=== PATIENT | female | born 1935 | race Caucasian/White ===

== ENCOUNTER 2017-01-27 14:31 | Observation (INO) ==
[2017-01-27] MEDS ORDERED: Phenylephrine Nasal 0.5% 15 ML BOTTLE NS ONE (14:34)
[2017-01-27] MEDS ORDERED: Silver Nitrate Applicator 1 STICK..EA. TP ONE (14:38)
[2017-01-27] MEDS: Silver Nitrate Applicator 1 STICK..EA. TP ONE (14:42)
--- NOTE | 2017-01-27 14:43 | Emergency Department Note ---
Disposition Clinical Impression: Epistaxis Disposition: Admitted As Inpatient Condition: Good Time of Disposition: 15:53 (b[facility]) Epistaxis HPI - General Chief complaint: ED Epistaxis Stated complaint: nose bleed Time Seen by Provider: 01/27/17 14:33 Source: patient Mode of arrival: ambulatory Limitations: no limitations Nursing Notes Reviewed: Yes Vital Signs Reviewed: Yes - History of Present Illness HPI Narrative: 81-year-old female seen a couple weeks ago for a nosebleed at that time was treated with silver nitrate patient presents back today after restarting bleeding approximately 3 days prior to arrival she is currently on multiple blood thinners at least from her medication list due to her condition she is unable to provide me with adequate history patient's bleeding from the left nares denies any lightheadedness dizziness denies any blurred vision or double vision she denies any diarrhea melena hematochezia or hematemesis patient's been bleeding for at least an hour prior to arrival bleeding the last 2 days as per home health caregiver Pt Subjective Complaint: epistaxis Location: left nostril Onset (ago): hour(s) (1) Duration: constant, hours (#) (1) Context: aspirin use, warfarin use, other anticoagulant use Associated symptoms: Reports: weakness Treatment prior to arrival: nose pinching, head tilted back, head leaned forward , stuffed nose with tissue - Related Data Home Medications Medication Instructions Recorded Confirmed Allopurinol [Zyloprim] 300 mg PO QAM 09/15/16 01/27/17 Aspirin 81 mg PO DAILY 09/15/16 01/27/17 Atorvastatin [Lipitor] 40 mg PO HS 09/15/16 01/27/17 Calcium Carbonate/Vitamin D3 1 each PO QAM 09/15/16 01/27/17 [Calcium 500 + Vit D Caplet] Digoxin [Lanoxin] 0.125 mg PO DAILY 09/15/16 01/27/17 Donepezil [Aricept] 5 mg PO HS 09/15/16 01/27/17 Folic Acid/Multivit-Min/Lutein 1 each PO QAM 09/15/16 01/27/17 [Centrum Silver Chewable Tablet] GlipiZIDE [Glipizide ER] 10 mg PO BID 09/15/16 01/27/17 Metformin HCl [Glucophage] 1,000 mg PO BID 09/15/16 01/27/17 Raloxifene [Evista] 60 mg PO DAILY 09/15/16 01/27/17 Rivaroxaban [Xarelto] 20 mg PO HS 09/15/16 01/27/17 Ferrous Sulfate [Iron] 325 mg PO DAILY 01/15/17 01/27/17 Metoprolol XL (24 HR) Succ [Toprol 50 mg PO DAILY 01/15/17 01/27/17 Xl] Acetaminophen [Tylenol] 1,000 mg PO QAM AND QHS 01/27/17 01/27/17 Amlodipine Besylate/Benazepril 1 each PO DAILY 01/27/17 01/27/17 [Lotrel 10-40 mg Capsule] Oxycodone HCl/Aspirin 1 each PO Q6H PRN 01/27/17 01/27/17 [Oxycodone-Aspirin 4.8355-325] Warfarin [Coumadin] 2.5 mg PO 1800 01/27/17 01/27/17 Allergies Allergy/AdvReac Type Severity Reaction Status Date / Time No Known Allergies Allergy Verified 01/15/17 10:21 All systems ED: reviewed and negative except as stated. Review of Systems: As Per HPI Constitutional: Denies: fever, chills, weakness Eyes: Denies: eye pain, eye discharge ENT ED: Reports: epistaxis Cardiovascular: Denies: chest pain, palpitations Respiratory: Denies: cough, dyspnea Gastrointestinal: Denies: abdominal pain, nausea, vomiting Genitourinary: Denies: urgency, dysuria, frequency Musculoskeletal: Denies: back pain, neck pain Integumentary: Denies: rash, abrasion Neurological: Reports: vertigo. Denies: headache, weakness Psychiatric: Denies: anxiety, depression Endocrine: Denies: fatigue Hematological/Lymphatic: Denies: easy bleeding Allergic/Immunologic: Denies: facial swelling Past Medical History - Past Medical History Attestation: Yes The following information was validated with the patient. Source: patient, old records reviewed, nursing notes reviewed Medical history: Reports: arthritis, atrial fibrillation, diabetes, hyperlipidemia, hypertension, other Surgical history: Reports: non-contributory, other Psychiatric history: Reports: anxiety, depression - Social History Smoking Status: Never smoker Smokeless Tobacco Status: No Alcohol use: Reports: none Drug use: Reports: none Physical Exam - General Limitations: no limitations General appearance: alert, in no apparent distress - Head Head exam: atraumatic, normocephalic, normal inspection - Eye Eye exam: Present: normal appearance, PERRL, EOMI - ENT ENT exam: normal oropharynx, mucous membranes moist, TM's normal bilaterally, normal external ear exam, other (No blood in the right nares blood noted left nares along with septal bleeding along the inferior edge of the septum heavy use is noted no clotting noted within the nasal region at this time blood noted within the posterior pharyngeal region) - Neck Neck exam: Present: normal inspection, full ROM, trachea midline - Chest Chest inspection: Present: normal inspection, symmetric chest wall rise - Respiratory Respiratory exam: Present: normal lung sounds bilaterally - Cardiovascular Cardiovascular exam: Present: regular rate, normal rhythm, normal heart sounds - Abdominal Exam Abdominal exam: Present: soft, Non-Tender, normal bowel sounds. Absent: mass, pulsatile mass - Extremities Exam Extremities exam: Present: normal inspection, full ROM, normal capillary refill , other (Slow steady gait). Absent: tenderness, pedal edema, joint swelling - Expanded Lower Extremity Exam Neurovascular/Tendon exam: Present: normal capillary refill, normal fine/light touch Gait: antalgic - Back Exam Back exam: Present: normal inspection, full ROM. Absent: muscle spasm - Neurological Exam Neurological exam: Present: alert, oriented X3, CN II-XII intact - Psychiatric Psychiatric exam: Present: normal affect, normal mood - Skin Skin exam: Present: warm, dry, intact, normal color Course Course Narrative: Only female seen examined area was cleansed with a Sigifredo-Synephrine spray revealing area along the nasal septal region which was bleeding area was cauterized using silver nitrate but despite this continued to bleed through the Silver nitrate coating as result 5.5 cm nasal tampon was placed with the balloon inflated with mild discomfort noted to the patient no further bleeding noted posterior pharyngeal region shows no bleeding noted as a result patient was admitted for observation due to her age but also the fact is nobody would be up to be with her this evening and make sure that she would not pull the packing out patient has some mild dementia as result admitted for observation Dr. Petersen understands Vital Signs Temperature 99.4 F 01/27/17 14:33 Pulse Rate 77 01/27/17 14:33 Respiratory Rate 18 01/27/17 14:33 Blood Pressure 155/77 08/23/17 14:33 O2 Sat by Pulse Oximetry 98 01/27/17 14:33 Temperature 98.0 F 01/27/17 17:41 Pulse Rate 99 01/27/17 17:41 Respiratory Rate 17 01/27/17 17:41 Blood Pressure 170/83 01/27/17 17:41 O2 Sat by Pulse Oximetry 96 01/27/17 17:41 Oxygen Delivery Oxygen Delivery Room Air Procedures - Epistaxis Control Consent Obtained: verbal consent Time Out Performed: Yes Nostril: left Nose Prepped With: phenylephrine Direct Inspection: yes, anterior source identified Clots Removed by: blowing nose, manually Cautery Used: silver nitrate Device Inserted: nasal tampon Device Size: 5 (5.5cm nasal rhino rocket) Patient Tolerated Procedure: well, no complications (minimal pain) Complications: pain (minimal) Epistaxis - Differential Diagnosis Likely: anterior epistaxis - Medical Records Medical records reviewed: Yes I reviewed the patient's medical records. - Lab Data Lab results reviewed: Yes I reviewed the patient's lab results. Result diagrams: 01/27/17 15:02 Lab Results 01/27/17 01/27/17 01/27/17 Range/Units 15:02 15:02 17:14 WBC 8.0 (4.3-11.1) K/mcL RBC 3.70 L (3.82-4.97) M/mcL Hgb 10.9 L (11.5-15.4) g/dL Hct 33.0 L (35.3-44.9) % MCV 89.2 (83.0-100.0) fL MCH 29.5 (28.0-33.3) pg MCHC 33.0 (31.6-35.5) g/dL RDW 14.6 H (11.5-14.5) % Plt Count 224 (140-400) K/mcL MPV 11.0 (9.4-12.4) fL PT 17.9 H (9.4-12.1) Seconds INR 1.6 APTT 41.0 H (26.0-36.0) Seconds POC Glucose 83 (58-89) Critical Care Time Critical Care Time: No
[2017-01-27 15:11] LABS: Hemoglobin 10.9 g/dL (11.5-15.4); Mean Corpuscular Hemoglobin 29.5 pg (28.0-33.3); Mean Corpuscular Volume 89.2 fL (83.0-100.0); Platelet Count 224 K/mcL (140-400); Red Cell Distribution Width 14.6 % (11.5-14.5)
[2017-01-27 15:17] LABS: INR 1.6; Prothrombin Time 17.9 Seconds (9.4-12.1)
[2017-01-27] MEDS ORDERED: *HR* Dextrose 50 % in Water (Syg) 50 ML SYRINGE IVP PRN ×2 (17:05→17:18)
[2017-01-27] MEDS ORDERED: Dextrose Gel 15 GM PO PRN ×4 (17:05→17:18)
[2017-01-27] MEDS ORDERED: D5% in Water 1,000 ML IVC PRN ×2 (17:05→17:18)
[2017-01-27] MEDS ORDERED: Naloxone 0.4 MG/ML INJ IVP PRN (17:18)
[2017-01-27] MEDS: *HR* GlipiZIDE XL (24 HR) 10 MG TABLET PO SCH (18:32)
[2017-01-27] MEDS: *HR* Metformin 500 MG TABLET PO SCH (20:13)
[2017-01-28] MEDS: *HR* OxyCODONE Immed Rel 5 MG TABLET PO PRN ×2 (06:33→21:49)
[2017-01-28 06:34] LABS: Basophils % 0.5 %; Eosinophils # 0.2 K/mcL (0.0-0.6); Hematocrit 30.1 % (35.3-44.9); Hemoglobin 9.8 g/dL (11.5-15.4); Immature Granulocytes % 0.2 % (0-4); Lymphocytes # 1.7 K/mcL (0.6-4.6); Lymphocytes % 20.5 %; Mean Corpuscular HGB Conc 32.6 g/dL (31.6-35.5); Mean Corpuscular Hemoglobin 29.1 pg (28.0-33.3); Mean Corpuscular Volume 89.3 fL (83.0-100.0); Mean Platelet Volume 10.4 fL (9.4-12.4); Monocytes # 0.5 K/mcL (0.0-1.3); Monocytes % 5.8 %; Platelet Count 168 K/mcL (140-400); Red Blood Count 3.37 M/mcL (3.82-4.97); Red Cell Distribution Width 14.6 % (11.5-14.5)
[2017-01-28 06:40] LABS: INR 1.1; Prothrombin Time 11.8 Seconds (9.4-12.1)
[2017-01-28 06:42] LABS: Activated Partial Thrombo Time 32.8 Seconds (26.0-36.0)
[2017-01-28 07:07] LABS: BUN/Creatinine Ratio 22 (6-26); Blood Urea Nitrogen 20 mg/dL (7-20); Calcium 8.6 mg/dL (8.6-10.8); Carbon Dioxide 24 mEq/L (19-29); Chloride 108 mEq/L (98-109); Glucose 163 mg/dL (70-99); Osmolality,Calculated 302 (280-300); Potassium 4.2 mEq/L (3.5-4.5); Sodium 143 mEq/L (136-145); eGFR For African Americans > 60 (> 60); eGFR For Non-African Americans 58 (> 60)
[2017-01-28] MEDS ORDERED: Insulin LISPRO 300 UNITS/3 ML VIAL SQ SCH (07:30)
[2017-01-28] MEDS: Lisinopril 20 MG TABLET PO SCH (08:08)
[2017-01-28] MEDS: amLODIPine 5 MG TABLET PO SCH (08:08)
[2017-01-28] MEDS: Multivit/Ca/Min/Fe/FA 1 TAB TABLET PO SCH (08:08)
[2017-01-28] MEDS: *HR* Digoxin 0.125 MG TABLET PO SCH (08:08)
[2017-01-28] MEDS: Metoprolol XL (24 HR) Succ 50 MG TAB.ER.24H PO SCH (08:08)
[2017-01-28] MEDS: *HR* Metformin 500 MG TABLET PO SCH ×2 (08:09→21:33)
[2017-01-28] MEDS: CALCIUM CARBONATE PO SCH (08:10)
[2017-01-28] MEDS: VITAMIN D3 PO SCH (08:10)
[2017-01-28] MEDS: Insulin LISPRO 300 UNITS/3 ML VIAL SQ SCH ×3 (08:10→16:54)
[2017-01-28] MEDS: *HR* GlipiZIDE XL (24 HR) 10 MG TABLET PO SCH (08:17)
[2017-01-28] MEDS ORDERED: NON-FORMULARY MEDICATION 1 EACH EACH (Amlodipine Besylate/Benazepril [Lotrel 10-40 Mg Caps PO SCH (09:00)
[2017-01-28] MEDS ORDERED: Aspirin 81 MG TAB.CHEW PO SCH (09:00)
[2017-01-28] MEDS ORDERED: AMLODIPINE BES PO SCH (09:00)
[2017-01-28] MEDS ORDERED: [UNRECOGNIZED DRUG - OTHER] PO SCH (09:00)
[2017-01-28] MEDS ORDERED: OLMESARTAN MED PO SCH (09:00)
--- NOTE | 2017-01-28 10:17 | Internal Med History&Physical ---
Date of Encounter: 01/28/17 Time of Encounter: 09:40 Assessment and Plan (1) Epistaxis Current visit: Yes Status: Acute Will hold OAC and aspirin. Remove nasal packing January 30. (2) Atrial fibrillation Current visit: Yes Status: Chronic Will hold OAC because of epistaxis. Qualifiers: Atrial fibrillation type: chronic Qualified Code(s): I48.2 - Chronic atrial fibrillation (3) Anemia Current visit: Yes Status: Chronic Will order anemia testing in a.m. Qualifiers: Anemia type: unspecified type Qualified Code(s): D64.9 - Anemia, unspecified (4) Dementia Current visit: Yes Status: Acute Will order MMSE. Qualifiers: Dementia type: unspecified type Dementia behavioral disturbance: without behavioral disturbance Qualified Code(s): F03.90 - Unspecified dementia without behavioral disturbance (5) Hypertension Current visit: Yes Status: Chronic Continue Norvasc, Zestril, and Toprol Qualifiers: Hypertension type: essential hypertension Qualified Code(s): I10 - Essential (primary) hypertension (6) DM type 2 (diabetes mellitus, type 2) Current visit: Yes Status: Chronic Continue Glucophage. Recheck hemoglobin A1c in a.m. Continue Accu-Cheks with SSI. Qualifiers: Diabetes mellitus complication status: with kidney complications Diabetes mellitus complication detail: with chronic kidney disease Diabetes mellitus senior living insulin use: without senior living use Chronic kidney disease stage: stage 3 (moderate) Qualified Code(s): E11.22 - Type 2 diabetes mellitus with diabetic chronic kidney disease; N18.3 - Chronic kidney disease, stage 3 ( moderate) (7) CKD (chronic kidney disease) stage 3, GFR 30-59 ml/min Current visit: Yes Status: Acute Stable. Will monitor renal indices periodically. Internal Medicine - H&P: HPI Chief complaint: Nosebleed Admitted From: Home Plans for Post Hospital Care: Home History of present illness: Ms. Lui is a 81 year old female who came to the emergency room with complaints of recurrent nosebleed. She had been to ER approximately 2 weeks earlier and treated with silver nitrate but had recurrent bleeding. She does not know the names of her medications but a med list provided by home health agency shows usage of aspirin, oxycodone/aspirin, and Xarelto. She had nasal packing in the emergency room was admitted to [facility] for ongoing care needs. She is a poor historian overall. She admits her memory is impaired. She uses Aricept for presumed dementia. She does not know why she is on aspirin or Xarelto. Past Med Surg Social Fam HX - Past Medical History Medical history: arthritis, atrial fibrillation, diabetes, hyperlipidemia, hypertension, other Psychiatric history: anxiety, depression - Past Surgical History Surgical History: non-contributory, other - Social History Smoking Status: Never smoker Smokeless Tobacco Status: No Alcohol use: none Drug use: none - Family History Daughter History Unknown: Yes Internal Medicine - H&P: Meds Allopurinol [Zyloprim] 300 mg PO QAM 09/15/16 [History] Aspirin 81 mg PO DAILY 09/15/16 [History] Atorvastatin [Lipitor] 40 mg PO HS 09/15/16 [History] Calcium Carbonate/Vitamin D3 [Calcium 500 + Vit D Caplet] 1 each PO QAM [History] Digoxin [Lanoxin] 0.125 mg PO DAILY 09/15/16 [History] Donepezil [Aricept] 5 mg PO HS 09/15/16 [History] Folic Acid/Multivit-Min/Lutein [Centrum Silver Chewable Tablet] 1 each PO QAM [History] GlipiZIDE [Glipizide ER] 10 mg PO BID 09/15/16 [History] Metformin HCl [Glucophage] 1,000 mg PO BID 09/15/16 [History] Raloxifene [Evista] 60 mg PO DAILY 09/15/16 [History] Rivaroxaban [Xarelto] 20 mg PO HS 09/15/16 [History] Ferrous Sulfate [Iron] 325 mg PO DAILY 01/15/17 [History] Metoprolol XL (24 HR) Succ [Toprol Xl] 50 mg PO DAILY 01/15/17 [History] Acetaminophen [Tylenol] 1,000 mg PO QAM AND QHS 01/27/17 [History] Amlodipine Besylate/Benazepril [Lotrel 10-40 mg Capsule] 1 each PO DAILY [History] Oxycodone HCl/Aspirin [Oxycodone-Aspirin 4.8355-325] 1 each PO Q6H PRN 01/27/17 [History] Warfarin [Coumadin] 2.5 mg PO 1800 01/27/17 [History] 3 Allergy/AdvReac Type Severity Reaction Status Date / Time No Known Allergies Allergy Verified 01/15/17 10:21 All Systems PM: A 10-system review of systems was performed and is negative for pertinent findings except as documented above in the HPI. Review of systems: Gen.: She states her weight has decreased in the past year but she is unable to quantitate Cardiovascular: She has history of hypertension. She is uncertain if she has atrial fibrillation. She denies GA heart failure DVT or pulmonary embolus Respiratory: She is a lifelong nonsmoker and denies known chronic lung disease GI: She denies disorders of her liver gallbladder or exocrine pancreas : She denies hematuria dysuria or kidney stones Neurologic: She has a diagnosis of dementia. She denies large distribution strokes or seizures Endocrine: She has DM 2 but is uncertain of duration. Hemoglobin A1c was 7.1% on 09/11/2016. She has history of hyperlipidemia. She denies thyroid disease. TSH was normal at 2.870 on 09/11/2016. Hematologic/oncology: She has diagnoses of anemia. Anemia testing September 2016 showed no factor deficiency. 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 She denies other bone joint or muscle disorders. - Constitutional Vitals: Temp Pulse Resp BP Pulse Ox 98.1 F 89 16 158/57 98 01/28/17 06:30 01/28/17 06:58 01/28/17 06:30 01/28/17 06:58 01/28/17 06:30 Exam: Gen.: She is well-developed well-nourished female who appears in no severe distress at present time. She is pleasant and talkative HEENT: Head is atraumatic and normocephalic. Eyes: EOMI. There is no scleral icterus. Mouth: Mucosa is moist. Nose: She has nasal packing in the left nare. Mouth: Mucosa is moist Neck: Supple and nontender. There is no thyromegaly or adenopathy noted. Heart: Irregularly irregular without murmurs or gallops Lungs: No wheezes or crackles are heard. Abdomen: Soft and nontender. No masses or guarding are noted. Extremities: There is no cyanosis edema or clubbing noted. Dorsalis pedis and posterior tibial pulses are trace palpable bilaterally. She has DJD changes of her hands and feet. Neurologic: Mental status: She is talkative but a fair to poor historian. She does not remember many details of her past history. Cranial nerves: Smile is symmetric. Forehead wrinkles bilaterally. Tongue protrudes midline. EOMI. Motor: There is no pronator drift. Cerebellar: Finger to nose is intact bilaterally. Skin: Warm and dry Internal Med - H&P Results - Labs CBC & Chem 7: 01/28/17 06:27 01/28/17 06:27 Labs: Short CBC 01/28/17 Range/Units 06:27 WBC 8.5 (4.3-11.1) K/mcL Hgb 9.8 L (11.5-15.4) g/dL Hct 30.1 L (35.3-44.9) % Plt Count 168 (140-400) K/mcL Neutrophils # 6.0 (1.6-8.9) K/mcL BMP 01/28/17 06:27 Sodium 143 Potassium 4.2 Chloride 108 Carbon Dioxide 24 BUN 20 Creatinine 0.93 Glucose 163 H Calcium 8.6
[2017-01-29 06:24] VITALS: BP 170/73
[2017-01-29 06:28] LABS: Basophils % 0.3 %; Eosinophils # 0.1 K/mcL (0.0-0.6); Eosinophils % 0.8 %; Hematocrit 29.5 % (35.3-44.9); Hemoglobin 9.7 g/dL (11.5-15.4); Immature Granulocytes % 0.3 % (0-4); Lymphocytes # 1.7 K/mcL (0.6-4.6); Lymphocytes % 17.4 %; Mean Corpuscular HGB Conc 32.9 g/dL (31.6-35.5); Mean Corpuscular Hemoglobin 29.2 pg (28.0-33.3); Mean Corpuscular Volume 88.9 fL (83.0-100.0); Mean Platelet Volume 10.6 fL (9.4-12.4); Monocytes # 0.6 K/mcL (0.0-1.3); Monocytes % 5.8 %; Neutrophils # 7.1 K/mcL (1.6-8.9); Platelet Count 162 K/mcL (140-400); Red Blood Count 3.32 M/mcL (3.82-4.97); Red Cell Distribution Width 14.5 % (11.5-14.5); Segmented Neutrophils % 75.4 %
[2017-01-29] MEDS: *HR* GlipiZIDE XL (24 HR) 10 MG TABLET PO SCH ×2 (07:37→07:40)
[2017-01-29] MEDS: Insulin LISPRO 300 UNITS/3 ML VIAL SQ SCH (07:40)
[2017-01-29] MEDS: Lisinopril 20 MG TABLET PO SCH (07:57)
[2017-01-29] MEDS: amLODIPine 5 MG TABLET PO SCH (07:57)
[2017-01-29] MEDS: Metoprolol XL (24 HR) Succ 50 MG TAB.ER.24H PO SCH (07:57)
[2017-01-29] MEDS: *HR* Digoxin 0.125 MG TABLET PO SCH (07:57)
[2017-01-29] MEDS: Multivit/Ca/Min/Fe/FA 1 TAB TABLET PO SCH (07:57)
[2017-01-29] MEDS ORDERED: *HR* Metformin 500 MG TABLET PO SCH (08:00)
[2017-01-29] MEDS: VITAMIN D3 PO SCH (08:12)
[2017-01-29] MEDS: CALCIUM CARBONATE PO SCH (08:12)
[2017-01-29 08:43] LABS: Hemoglobin A1C 6.2 %
--- NOTE | 2017-01-29 11:02 | Discharge Summary ---
Date of Encounter: 01/29/17 Time of Encounter: 10:45 - Discharge Diagnosis (1) Epistaxis Priority: Primary Status: Acute (2) Atrial fibrillation Priority: Secondary Status: Chronic Qualifiers: Atrial fibrillation type: chronic Qualified Code(s): I48.2 - Chronic atrial fibrillation (3) Anemia Priority: Secondary Status: Chronic Qualifiers: Anemia type: unspecified type Qualified Code(s): D64.9 - Anemia, unspecified (4) Dementia Priority: Secondary Status: Chronic Qualifiers: Dementia type: unspecified type Dementia behavioral disturbance: without behavioral disturbance Qualified Code(s): F03.90 - Unspecified dementia without behavioral disturbance (5) Hypertension Priority: Secondary Status: Chronic Qualifiers: Hypertension type: essential hypertension Qualified Code(s): I10 - Essential (primary) hypertension (6) DM type 2 (diabetes mellitus, type 2) Priority: Secondary Status: Chronic Qualifiers: Diabetes mellitus complication status: with kidney complications Diabetes mellitus complication detail: with chronic kidney disease Diabetes mellitus certified midwife insulin use: without certified midwife use Chronic kidney disease stage: stage 3 (moderate) Qualified Code(s): E11.22 - Type 2 diabetes mellitus with diabetic chronic kidney disease; N18.3 - Chronic kidney disease, stage 3 ( moderate) (7) CKD (chronic kidney disease) stage 3, GFR 30-59 ml/min Priority: Secondary Status: Chronic - Discharge Medications Prescriptions: Donepezil HCl [Aricept] 10 mg PO DAILY #30 tablet Memantine [Namenda] 5 mg PO HS #7 tablet Home Medications: Allopurinol [Zyloprim] 300 mg PO QAM 09/15/16 [History] Atorvastatin [Lipitor] 40 mg PO HS 09/15/16 [History] Calcium Carbonate/Vitamin D3 [Calcium 500 + Vit D Caplet] 1 each PO QAM [History] Digoxin [Lanoxin] 0.125 mg PO DAILY 09/15/16 [History] Folic Acid/Multivit-Min/Lutein [Centrum Silver Chewable Tablet] 1 each PO QAM [History] GlipiZIDE [Glipizide ER] 10 mg PO BID 09/15/16 [History] Metformin HCl [Glucophage] 1,000 mg PO BID 09/15/16 [History] Raloxifene [Evista] 60 mg PO DAILY 09/15/16 [History] Ferrous Sulfate [Iron] 325 mg PO DAILY 01/15/17 [History] Metoprolol XL (24 HR) Succ [Toprol Xl] 50 mg PO DAILY 01/15/17 [History] Acetaminophen [Tylenol] 1,000 mg PO QAM AND QHS 01/27/17 [History] Amlodipine Besylate/Benazepril [Lotrel 10-40 mg Capsule] 1 each PO DAILY [History] Aspirin 81 mg PO Q48H #0 01/29/17 [Rx] Donepezil HCl [Aricept] 10 mg PO DAILY #30 tablet 01/29/17 [Rx] Memantine [Namenda] 5 mg PO HS #7 tablet 01/29/17 [Rx] Rivaroxaban [Xarelto] 20 mg PO HS #0 01/29/17 [Rx] Allergies/Adverse Reactions: 3 Allergy/AdvReac Type Severity Reaction Status Date / Time No Known Allergies Allergy Verified 01/15/17 10:21 Date of admission: 01/27/17 17:25 Primary care physician: Yo Brown MD - Patient Status Disposition: Home Health Service Condition: Good Overall status at discharge: patient is progressing back to baseline - Discharge Instructions Follow Up With: Yo Brown MD [Primary Care Provider] - - Diet and Activity Activity: resume usual activities as tolerated Diet: advance to your usual diet Hospital course: Ms. Lui is a 81 year old female who came to the emergency room with complaints of recurrent nosebleed. She had been to ER approximately 2 weeks earlier and treated with silver nitrate but had recurrent bleeding. She does not know the names of her medications but a med list provided by home health agency shows usage of aspirin, oxycodone/aspirin, and Xarelto. She had nasal packing in the emergency room was admitted to [facility] floor for ongoing care needs. Initial orders were written by the emergency room physician. I saw her on January 28 and performed of the history and physical. Her OAC and aspirin were held. Hemoglobin remained stable at 9.7 on January 29. Social service consult was made and arrangements were offered for her to go to [facility] for respite care stay. I spoke with the patient's son the morning of January 29 and he stated he would be able to be in the patient's home for next 3 days and could monitor her there rather than going to respite care. He and his sister are addressing longer-term care needs. MMSE exam showed score of 12/30. Her Aricept dose will be increased to 10 mg daily and she will be started on Namenda 5 mg daily. She will follow with Dr. Brown within 1 week who can increase the dose of Namenda as recommended. Anemia testing was ordered with results pending at time of this dictation. On January 29 she was stable for discharge home. She will remain off Xarelto and aspirin until February 01. Xarelto will be restarted at usual dose but aspirin will be decreased to every 48 hours. She will discontinue the oxycodone /aspirin combination. Home health nursing services will be resumed and the rapid Rhino nasal packing will be removed tomorrow. - Time Spent with Patient Total time spent providing and/or coordinating discharge services: - Constitutional Vitals: Temp Pulse Resp BP Pulse Ox 98.7 F 79 18 170/73 94 01/29/17 06:21 01/29/17 06:21 01/29/17 06:21 01/29/17 06:21 01/29/17 06:21
[2017-01-29 11:05] LABS: Folate 17.7 ng/mL (7.0-31.4)
--- NOTE | 2017-01-29 11:10 | Physician Discharge Referral ---
Home Health/Hosp Referral Info Transfer to: Home Health Attending Provider: Nicola Provider in Charge Post Discharge: PCP (Yo Brown M.D.) - Diagnosis (1) Epistaxis Priority: Primary Status: Acute (2) Atrial fibrillation Priority: Secondary Status: Chronic (3) Anemia Priority: Secondary Status: Chronic (4) Dementia Priority: Secondary Status: Chronic (5) Hypertension Priority: Secondary Status: Chronic (6) DM type 2 (diabetes mellitus, type 2) Priority: Secondary Status: Chronic (7) CKD (chronic kidney disease) stage 3, GFR 30-59 ml/min Priority: Secondary Status: Chronic - Respiratory Orders Smoking Cessation: Smoking cessation has been advised. For more information, call the [place] Tobacco Quit Line at 8-249-CKPD-NOW. - Diet/Nutrition Diet/Nutrition Orders: Regular - Activity Activity Orders: Ambulate - Services Needed Following services are medically necessary services: Nursing, Home Health Aide, Physical Therapy, Occupational Therapy Other Treatments: Remove rapid Rhino from left nare 01/30/2017. - Transfer Medications Prescriptions: Donepezil HCl [Aricept] 10 mg PO DAILY #30 tablet Memantine [Namenda] 5 mg PO HS #7 tablet Home Medications: Allopurinol [Zyloprim] 300 mg PO QAM 09/15/16 [History] Atorvastatin [Lipitor] 40 mg PO HS 09/15/16 [History] Calcium Carbonate/Vitamin D3 [Calcium 500 + Vit D Caplet] 1 each PO QAM [History] Digoxin [Lanoxin] 0.125 mg PO DAILY 09/15/16 [History] Folic Acid/Multivit-Min/Lutein [Centrum Silver Chewable Tablet] 1 each PO QAM [History] GlipiZIDE [Glipizide ER] 10 mg PO BID 09/15/16 [History] Metformin HCl [Glucophage] 1,000 mg PO BID 09/15/16 [History] Raloxifene [Evista] 60 mg PO DAILY 09/15/16 [History] Ferrous Sulfate [Iron] 325 mg PO DAILY 01/15/17 [History] Metoprolol XL (24 HR) Succ [Toprol Xl] 50 mg PO DAILY 01/15/17 [History] Acetaminophen [Tylenol] 1,000 mg PO QAM AND QHS 01/27/17 [History] Amlodipine Besylate/Benazepril [Lotrel 10-40 mg Capsule] 1 each PO DAILY [History] Aspirin 81 mg PO Q48H #0 01/29/17 [Rx] Donepezil HCl [Aricept] 10 mg PO DAILY #30 tablet 01/29/17 [Rx] Memantine [Namenda] 5 mg PO HS #7 tablet 01/29/17 [Rx] Rivaroxaban [Xarelto] 20 mg PO HS #0 01/29/17 [Rx] Allergies/Adverse Reactions: 3 Allergy/AdvReac Type Severity Reaction Status Date / Time No Known Allergies Allergy Verified 01/15/17 10:21 Certification: Further, I certify that my clinical findings support that this patient is homebound (i.e. absences from home require considerable and taxing effort and are for medical reasons or yarsanism services or infrequently or short duration when for other reasons) because: Homebound Reason: Leaving home requires considerable and taxing effort due to condition (Impaired ambulatory ability, dementia) Attestation: My signature below is to certify that this patient is under my care and that I, or nurse practitioner, or a physician's food trades assistants working with me, has a face-to -face encounter with this patient.
== END 2017-01-29 11:45 | disposition home health service (06) ==
LOC: EMEROOPIK 14:31 → INPPIK 14:31
PROVIDERS: ADMIT Internal Medicine; ATTEND Internal Medicine

== ENCOUNTER 2021-09-03 14:28 | Inpatient (IN) ==
[2021-09-03] MEDS ORDERED: 0.9 % Sodium Chloride 1,000 ML IVC ONE (15:07)
[2021-09-03] MEDS ORDERED: DIGOXIN IMMUNE FAB IVPB ONE ×2 (15:12→17:44)
[2021-09-03] MEDS ORDERED: SODIUM CHLORIDE 0.9% IVPB ONE ×2 (15:12→17:44)
[2021-09-03] MEDS ORDERED: Piperacillin/Tazobactam 3.375 GM in 0.9 % Sodium Chloride Mini Bag 100 ML IVPB ONE (16:32)
[2021-09-03] MEDS ORDERED: Acetaminophen 325 MG TABLET PO PRN (16:43)
[2021-09-03] MEDS ORDERED: Naloxone 0.4 MG/ML INJ IVP PRN (16:43)
[2021-09-03] MEDS ORDERED: Ondansetron ODT 4 MG TAB.RAPDIS SL PRN (16:43)
[2021-09-03 17:05] LABS: Bilirubin,Urine Negative (Negative); Blood,Urine Moderate (Negative); Clarity,Urine Slightly Cloudy (Clear); Color,Urine Yellow (Yellow); Glucose,Urine (UA) Normal (Normal); Ketones,Urine Negative (Negative); Leukocyte Esterase,Urine Negative (Negative); Nitrite,Urine Negative (Negative); Protein,Urine >=300 mg/dL (Neg-Trace); Specific Gravity,Urine 1.025 (1.010-1.025); Urobilinogen,Urine Normal (Normal)
[2021-09-03 17:13] LABS: Amorphous Sediment,Urine Moderate per hpf (None-Few); Bacteria,Urine Few per hpf (None-Few); RBC,Urine 15-30 per hpf (0-3); Squamous Epithelial Cell,Urine Few per hpf (None-Few)
[2021-09-03 18:11] LABS: Calcium 6.6 mg/dL (8.6-10.3); Potassium 4.7 mEq/L (3.5-5.1)
[2021-09-03] MEDS ORDERED: 0.9 % Sodium Chloride 1,000 ML IVC SCH (18:45)
[2021-09-04] MEDS ORDERED: Morphine Sulfate 2 MG/ML SYRINGE IVP ONE (00:14)
[2021-09-04 04:20] LABS: Basophils % 0.1 %; Eosinophils # 0.1 K/mcL (0.0-0.6); Eosinophils % 1.1 %; Hematocrit 30.4 % (35.3-44.9); Hemoglobin 9.5 g/dL (11.5-15.4); Immature Granulocytes % 0.4 % (0-4); Lymphocytes % 8.6 %; Mean Corpuscular HGB Conc 31.3 g/dL (31.6-35.5); Mean Corpuscular Hemoglobin 27.9 pg (28.0-33.3); Mean Corpuscular Volume 89.4 fL (83.0-100.0); Mean Platelet Volume 11.9 fL (9.4-12.4); Monocytes # 0.3 K/mcL (0.0-1.3); Monocytes % 2.8 %; Neutrophils # 9.9 K/mcL (1.6-8.9); Nucleated Red Blood Cells 0.2 /100 WBC (0); Platelet Count 146 K/mcL (140-400); Red Cell Distribution Width 15.6 % (11.5-14.5); White Blood Count 11.4 K/mcL (4.3-11.1)
[2021-09-04 04:39] LABS: Calcium 6.7 mg/dL (8.6-10.3)
[2021-09-04] MEDS ORDERED: Atropine Sulfate 1% 40 DROP/2 ML BOTTLE SL PRN (05:01)
[2021-09-04] MEDS ORDERED: Piperacillin/Tazobactam 3.375 GM in 0.9 % Sodium Chloride Mini Bag 100 ML IVPB SCH (06:00)
[2021-09-04] MEDS ORDERED: DIGOXIN IMMUNE FAB IVPB ONE ×2 (08:48→17:25)
[2021-09-04] MEDS ORDERED: SODIUM CHLORIDE 0.9% IVPB ONE ×2 (08:48→17:25)
[2021-09-04] MEDS ORDERED: amLODIPine 5 MG TABLET PO SCH (09:00)
[2021-09-04] MEDS ORDERED: lisinopriL 20 MG TABLET PO SCH (09:00)
[2021-09-04] MEDS ORDERED: *HR* LORazepam 2 MG/ML VIAL IVP ONE (09:21)
[2021-09-04] MEDS ORDERED: *HR* Rivaroxaban 15 MG TABLET PO SCH (17:00)
[2021-09-04] MEDS ORDERED: Ondansetron 4 MG/2 ML VIAL IVP PRN (17:16)
[2021-09-04] MEDS ORDERED: *HR* LORazepam 0.5 MG TABLET PO PRN (17:16)
[2021-09-04] MEDS ORDERED: Morphine Sulfate 2 MG/ML SYRINGE IVP PRN (17:16)
[2021-09-04] MEDS ORDERED: Scopolamine Patch 1.5 MG PATCH.TD72 TD SCH (17:30)
[2021-09-04] MEDS: 0.9 % Sodium Chloride 1,000 ML IVC SCH (17:51)
[2021-09-04] MEDS: Piperacillin/Tazobactam 3.375 GM in 0.9 % Sodium Chloride Mini Bag 100 ML IVPB SCH (18:46)
[2021-09-04] MEDS ORDERED: Haloperidol Oral Conc 10 MG/5 ML UDC PO PRN (20:11)
[2021-09-04] MEDS: *HR* LORazepam 2 MG/ML VIAL IVP PRN ×2 (21:16→21:45)
[2021-09-04 22:48] VITALS: PULSE 38
[2021-09-05] MEDS: *HR* LORazepam 2 MG/ML VIAL IVP PRN ×3 (03:03→12:31)
[2021-09-05] MEDS: Piperacillin/Tazobactam 3.375 GM in 0.9 % Sodium Chloride Mini Bag 100 ML IVPB SCH (04:12)
[2021-09-05] MEDS: 0.9 % Sodium Chloride 1,000 ML IVC SCH (04:12)
[2021-09-05 06:30] VITALS: BP 81/58; RESP 20; TEMP 95.5; O2SAT 94
== END 2021-09-05 15:28 | disposition hospice, inpatient (51) | DRG 193 ==
LOC: INPPIK 14:28 → EMEROOPIK 14:28 → INPPIK 19:00
PROVIDERS: ADMIT Internal Medicine; ATTEND Internal Medicine

== ENCOUNTER 2021-09-05 14:32 | Inpatient (IN) ==
[2021-09-05] MEDS ORDERED: *HR* LORazepam Oral Conc 2 MG/ML PO PRN (16:28)
[2021-09-05] MEDS ORDERED: Ondansetron ODT 4 MG TAB.RAPDIS SL PRN (16:28)
[2021-09-05] MEDS ORDERED: Morphine Sulfate Oral CONC 10 MG/0.5 ML ORAL.SYG PO PRN (16:28)
[2021-09-05] MEDS ORDERED: Morphine Sulfate 2 MG/ML SYRINGE IVP PRN (18:11)
[2021-09-05] MEDS: *HR* LORazepam 2 MG/ML VIAL IVP PRN ×2 (18:19→22:35)
[2021-09-05 20:18] VITALS: BP 72/43; PULSE 41; O2SAT 97
[2021-09-06] MEDS: Atropine Sulfate 1% 40 DROP/2 ML BOTTLE SL PRN ×2 (03:33→04:25)
[2021-09-06] MEDS: *HR* LORazepam 2 MG/ML VIAL IVP PRN (03:34)
== END 2021-09-06 09:30 | disposition expired | DRG 951 ==
LOC: INPPIK 16:08
PROVIDERS: ADMIT Internal Medicine; ATTEND Internal Medicine